=== PATIENT | male | born 1970 | race Two or more races ===

== ENCOUNTER 2024-07-05 11:14 | Outpatient (RCR) | payer MEDICAID, SELFPAY ==
--- NOTE | 2024-07-05 11:46 | PTNOTE_ITS ---
PT OP Initial Eval Patient Information Outpatient Physical Therapy Treatment Date: 07/05/24 Visit Reasons: Pain in Right shoulder Medical Diagnosis: M25.511 Treatment Dx #1: R shoulder pain Start of Care: 07/05/24 Date of Onset: 1.5 yrs Smoking Status Smoking Status: Never smoker Initial Assessment Subjective: Pt is 53 yr old indonesian speaking male who reports insidious onset of R shoulder pain x1.5 yrs. Increased pain with reaching up or across the body and he is limited with lifting things above chest level. He hasn't been working due to LBP and hernia PMH: DM, HTN, high cholesterol Imaging: with provider Pt goal: for the shoulder not to hurt Objective: R shoulder AROM: FF: 110 deg Abd: 65 deg with pain ER: 70 deg with pain HBB: to R glute with pain Ellis Carlton: positive Strength: 3-/5 in all planes of motion Assessment: Pt presents with high tissue irritability and limited ROM and strength consistent with calcific tendinitis of R shoulder and adhesive capsulitis. Pt may benefit from skilled therapy to meet goals and has poor/fair rehab potential. Pt may benefit from pain injection due to high pain level. Short Term and [employer] Goals 1. Ind with HEP ? 2. Improved AROM of R shoulder to at least 135 deg FF, 125 deg abduction and 90 deg ? ER ? 3. Improved HBB ROM to L3 ? 4. Pt will reach OH x10 with <=4/10 pain Treatment Plan 1. Manual therapy ? 2. Therex ? 3. Modalities as indicated, moist heat pack, ice, electrical stimulation, Frequency and Duration: 1-2x a week for 4 Rx visits then reassess Certification Dates: 07/05/24 to 10/04/24 Procedure Charges OP PT Eval Mod Complex 30 minutes: Yes
== END 2024-07-18 23:59 | disposition home or self-care (01) ==
LOC: CPTX 11:14
PROVIDERS: PCP Chiropractor; Referring Provider Chiropractor; Visit Provider Chiropractor
DX: M25.511 Pain in right shoulder (principal); E11.9 Type 2 diabetes mellitus without complications; I10 Essential (primary) hypertension
CPT/HCPCS: 97162

== ENCOUNTER → 2024-10-20 | Outpatient (CLI) | payer MEDICAID, SELFPAY ==
--- NOTE | 2024-10-20 13:00 | XR_ITS ---
MRI shoulder, left, without contrast. Date and time: October 20, 2024 1336 hours INDICATIONS: Left shoulder pain with abduction joint clicking and locking beginning one year ago Technique: Multiple axial, sagittal and coronal sections of the shoulder have been obtained. Siemens high-resolution 1.5 Samantha MRI scanner is utilized. Axial fat-suppressed sections, TR 2350, TE 18 T2-weighted coronal fat-saturated images, TR 3500, TE 7100 T1-weighted coronal images, TR 500, TE 15 T2-weighted sagittal fat-saturated images, TR 3500, TE 57 T1-weighted sagittal sections, TR 504, TE 13. Findings: Supraspinatus tendon insertion is abnormal, 4 mm rim rent partial-thickness articular surface tear. Infraspinatus tendon insertion is intact. Subscapularis insertion is intact. Subscapularis bursa is not seen. Long head of the biceps is in the bicipital groove. No definite tear of the biceps superior labral anchor is seen. Retraction of the musculotendinous junction of the rotator cuff is not seen . Tendinosis pattern is moderate. Distance between the acromium and humeral head is 7 mm Atrophy of the supraspinatus muscle is mild . Atrophy of the infraspinatus muscle is mild. Sagittal sections demonstrate a horizontal acromion. Acromioclavicular joint demonstrates mild osteoarthritis . Osacromiale is not identified. Small posterior labral tear axial image 10 Bony glenoid fossa on the sagittal sections does not demonstrate osseous defect. Occult fracture or area of avascular necrosis is not seen. Acromioclavicular joint separation is not visible. Defect in the posterolateral margin of the humeral head is not seen Impression: 4 mm partial-thickness articular surface tear supraspinatous Small posterior labral tear
== END | disposition home or self-care (01) ==
LOC: SMRI 12:43
PROVIDERS: PCP Physician Assistant; Referring Provider Chiropractor; Visit Provider Chiropractor
DX: M75.102 Unspecified rotator cuff tear or rupture of left shoulder, not specified as traumatic (principal); S43.432A Superior glenoid labrum lesion of left shoulder, initial encounter; X58.XXXA Exposure to other specified factors, initial encounter
CPT/HCPCS: 73221

== ENCOUNTER 2024-11-29 08:38 | Outpatient (RCR) | payer MEDICAID, SELFPAY ==
--- NOTE | 2024-11-29 09:23 | PT.OIERPT ---
PT OP Initial Eval Patient Information Outpatient Physical Therapy Treatment Date: 11/29/24 Visit Reasons: bilateral shoulder pain Medical Diagnosis: M25.511 M25.512 M75.31 Start of Care: 11/29/24 Date of Onset: 1 yr ago Smoking Status Smoking Status: Never smoker Initial Assessment Subjective: Pt is 54 yr old icelandic speaking male who reports insidious onset of R shoulder pain x4 months. Increased pain with reaching up or across the body and he is limited with lifting things above chest level. He hasn't been working due to LBP and hernia PMH: DM, HTN, high cholesterol Imaging: with provider Pt goal: for the shoulder not to hurt Objective: L shoulder AROM: FF: 100 deg Abd: 65 deg with pain ER: 60 deg with pain HBB: to L glute with pain Ellis Carlton: positive Drop arm: positive Strength: 3-/5 in all planes of motion Assessment: Pt presents with high tissue irritability and limited ROM and strength consistent with recent MRI results that show RC tear and labral tear of L shoulder. Pt not likely to benefit from skilled therapy to meet goals and has poor rehab potential. He will likely have more pain in the L shoulder with therapy visits similar to the last time he tried therapy for the R shoulder. PT recommends orthopedic evaluation. Short Term and Intermediate Goals Eval and D/C Treatment Plan Eval and D/C Certification Dates: 11/29/24 Procedure Charges OP PT Eval Mod Complex 30 minutes: Yes
== END 2024-12-18 23:59 | disposition home or self-care (01) ==
LOC: CPTX 08:38
PROVIDERS: PCP Chiropractor; Referring Provider Chiropractor; Visit Provider Chiropractor
DX: M25.512 Pain in left shoulder (principal); M25.511 Pain in right shoulder; M75.31 Calcific tendinitis of right shoulder; E11.9 Type 2 diabetes mellitus without complications; I10 Essential (primary) hypertension
CPT/HCPCS: 97162

== ENCOUNTER 2025-03-22 07:48 | Outpatient (RCR) | payer MEDICAID, SELFPAY | END 2025-04-19 23:59 | disposition home or self-care (01) | LOC: SCTC 07:48 | PROVIDERS: PCP Physician Assistant; Referring Provider Physician Assistant; Visit Provider Nurse Practitioner Family | DX: D75.1 Secondary polycythemia (principal); E11.9 Type 2 diabetes mellitus without complications; Z86.19 Personal history of other infectious and parasitic diseases; Z86.16 Personal history of COVID-19; Z87.891 Personal history of nicotine dependence; Z79.85 Long-term (current) use of injectable non-insulin antidiabetic drugs; Z79.84 Long term (current) use of oral hypoglycemic drugs | CPT/HCPCS: 99213; G0463 ==